=== PATIENT | male | born 1955 ===

== ENCOUNTER 2016-08-16 12:37 | Day surgery (SDC) | payer SELFPAY ==
[2016-08-17] MEDS ORDERED: ASPIRIN 81 MG TAB.CHEW PO SCH (08:00)
[2016-08-17] MEDS ORDERED: INDAPAMIDE 1.25 MG TABLET PO SCH (09:00)
== END 2016-09-03 10:24 | disposition home or self-care (01) ==
LOC: SDC 12:37
PROVIDERS: ATTEND Internal Medicine
DX: Z53.21 Procedure and treatment not carried out due to patient leaving prior to being seen by health care provider (principal)
CPT/HCPCS: 36415; 82565; 84132; 85049; 85610